=== PATIENT | female | born 1960 | race African-American/Black ===

== ENCOUNTER 2016-10-27 07:24 | Emergency (ER) | payer MEDICAID ==
[2016-10-27] MEDS ORDERED: LISINOPRIL10 M1 PO (07:36)
[2016-10-27] MEDS ORDERED: METOPROLOL TART25 M1 PO (07:37)
[2016-10-27] MEDS ORDERED: LASIX40 M1 PO (07:37)
[2016-10-27 07:46] LABS: BASO % 0.5 % (0-2); EOS % 5.6 % (0-7); EOSINOPHIL ABSOLUTE COUNT 0.2 tho/cmm (0.0-0.7); HGB-HEMOGLOBIN 13.1 gm/dl (12.0-15.5); IMMATURE GRANULOCYTES ABSOLUTE 0.01 tho/cmm (0-0.03); IMMATURE GRANULOCYTES PERCENT 0.2 % (0-0.3); LYMPH % 56.8 % (20-45); LYMPH ABSOLUTE COUNT 2.4 tho/cmm (0.8-4.5); MCH (MEAN CORPUSCULAR HGB) 35.5 pg (28.0-32.0); MCHC MEAN CORPUSCULAR HGB CONC 33.6 % (32.0-36.0); MCV (MEAN CELL VOLUME) 105.7 fl (82.0-96.0); MEAN PLATELET VOLUME 10.3 cmc (9.4-12.4); MONO % 11.5 % (0-12); MONOCYTE ABSOLUTE COUNT 0.5 tho/cmm (0.0-1.2); NEUTROPHIL ABSOLUTE COUNT 1.1 tho/cmm (1.6-8.0); NEUTROPHIL-AUTOMATED 1.1 tho/cmm (1.6-8.0); NEUTROPHILS % 25.4 % (40-80); PLATELET COUNT 197 tho/cmm (150-450); RED BLOOD COUNT 3.69 mil/cmm (4.00-5.20); RED CELL DISTRIBUTION WIDTH 14.5 % (12.4-16.4); WHITE BLOOD COUNT 4.3 tho/cmm (4.0-10.0)
[2016-10-27 08:03] LABS: ANION GAP 13 mmol/L (0-20); BLOOD UREA NITROGEN 19 mg/dl (6-24); CALCIUM 9.2 mg/dl (8.5-10.5); CARBON DIOXIDE-VENOUS 26 mmol/L (22-32); CHLORIDE 107 mmol/l (96-110); CREATININE 0.83 mg/dl (0.50-1.10); GLUCOSE 85 mg/dL (70-110); SODIUM 142 mmol/L (135-145); eGFR VALUE FOR BLACK >90 mL/Min
[2016-10-27 08:17] LABS: POTASSIUM 3.7 mmol/L (3.7-5.1)
[2016-10-27] MEDS ORDERED: DAPSONE PO (09:00)
[2016-10-27] MEDS ORDERED: CYMBALTA60 M1 PO (09:00)
[2016-10-27] MEDS ORDERED: AMBIEN10 M1 PO (09:00)
[2016-10-27] MEDS ORDERED: TIVICAY50 M1 PO (09:00)
[2016-10-27] MEDS ORDERED: KALETRA 200-501 TAB PO (09:01)
[2016-10-27] MEDS ORDERED: TRAZODONE HCL50 M1 PO (09:02)
[2016-10-27] MEDS ORDERED: ZIDOVUDINE PO (09:02)
[2016-10-27] MEDS ORDERED: OMEPRAZOLE20 M3 PO (09:02)
[2017-01-31] MEDS ORDERED: ATIVAN1 M2 PO (01:18)
[2017-01-31] MEDS ORDERED: AMBIEN10 M1 PO (03:36)
[2017-01-31] MEDS ORDERED: METOPROLOL TART25 M1 PO (03:36)
== END 2016-10-27 12:09 ==
LOC: EDMED 07:24
PROVIDERS: Emergency Medicine
DX: I11.0 Hypertensive heart disease with heart failure (principal); I50.9 Heart failure, unspecified; I47.2 Ventricular tachycardia; F17.200 Nicotine dependence, unspecified, uncomplicated; Z88.0 Allergy status to penicillin; Z88.2 Allergy status to sulfonamides; Z79.899 Other long term (current) drug therapy
CPT/HCPCS: G0480; J1200; J2930; J7030